=== PATIENT | female | born 1960 | race Caucasian/White ===

== ENCOUNTER → 2018-11-18 | Outpatient (CLI) | payer BC ==
--- NOTE | 2018-11-18 14:39 | PCVCIMAG ---
APPROVED REPORT Study performed: 11/18/2018 09:15:54 Exam: Stress Echocardiogram Indication: Chest pain, Jaw pain Patient Location: Echo lab Stress Nurse: Christie Mazariegos RN Status: routine Ht: 5 ft 3 in HR: 83 bpm BP: 140/92 mmHg Rhythm: NSR Procedure The patient underwent an Exercise Stress Test using the Vinny Protocol. Blood pressure, heart rate, and EKG were monitored. An Echocardiogram was performed by pipe testing technician in four stages in quad fashion. At peak stress, four selected images were obtained and placed side by side with resting images for comparison. Stress Test Details Stress Test: Exercise stress testing was performed using a Vinny protocol. HR Resting HR: 58 bpmMax Heart Rate (APMHR): 164 bpm Max HR Achieved: 164 bpmTarget HR (85% APMHR): 139 bpm % of APMHR: 100 Recovery HR: 83 bpm HR response to stress: Normal HR response to stress BP Resting BP: 140/92 mmHg Max BP: 186/70 mmHg Recovery BP: 140/68 mmHg BP response to stress: Normal blood pressure response to stress. ECG Resting ECG: Sinus Rhythm Stress ECG: Sinus Rhythm Recovery ECG: Sinus Rhythm Clinical Reason for Termination: Maximal effort Exercise duration: 12 min 16 sec Highest Stage Achieved: Stage 5: 5.0 mph at 18% grade. Exercise capacity: 14.30 METs Overall Exercise Capacity for Age: Good Stress ECG Conclusion ECG: Non-ischemic Clinical: Non-ischemic Pre-Stress Echo The resting Echocardiogram showed normal left ventricular contractility with an estimated Ejection Fraction of about >55%. Normal wall motion in all segments on baseline images. Post-Stress Echo The stress Echocardiogram showed normal left ventricular contractility with an estimated Ejection Fraction of about 60-65%. Normal augmentation of wall motion in all segments on post stress images. Clinical No clinical or ECG evidence for ischemia. Conclusion Clinical Response: Non-ischemic Exercise Capacity: Superior Stress ECG Response: Non-ischemic Stress Echo Images: Non-ischemic The left ventricle is normal in size and wall thickness in both the rest and stress images. Other Information Study Quality: Good <Conclusion> The left ventricle is normal in size and wall thickness in both the rest and stress images.
== END | disposition home or self-care (01) ==
LOC: PCVCIMAG 09:10
PROVIDERS: ATTEND Internal Medicine Cardiovascular Disease
DX: R07.9 Chest pain, unspecified (principal); R06.02 Shortness of breath
CPT/HCPCS: 93325; 93351